=== PATIENT | male | born 1995 | race Two or more races ===

== ENCOUNTER 2018-02-05 02:31 | Emergency (ER) | payer BC ==
[~2018-02-05] VITALS: Ht 170.2 cm; Wt 81.6 kg
--- NOTE | 2018-02-05 02:48 | NUR ---
DR NYLA HICKS MD AT BEDSIDE FOR MSE.
--- NOTE | 2018-02-05 02:55 | NUR ---
LAB AT PT BEDSIDE FOR BLOOD DRAW.
--- NOTE | 2018-02-05 02:59 | NUR ---
RADIOLOGY AT BEDSIDE FOR XRAY.
[2018-02-05 03:02] LABS: BASOPHILS % (AUTO) 0.6 % (0.0-2.0); EOSINOPHILS # (AUTO) 0.5 K/uL (0.0-0.7); HEMATOCRIT 43.4 % (36.7-47.1); HEMOGLOBIN 15.2 g/dL (12.5-16.3); LYMPHOCYTES # (AUTO) 3.3 K/uL (20.0-40.0); LYMPHOCYTES % (AUTO) 43.2 % (20.5-51.5); MEAN CORPUSCULAR HEMOGLOBIN 28.6 uug (23.8-33.4); MEAN CORPUSCULAR HGB CONC 35 g/dL (32.5-36.3); MEAN CORPUSCULAR VOLUME 81.9 fL (73.0-96.2); MONOCYTES # (AUTO) 0.7 K/uL (2.0-10.0); MONOCYTES % (AUTO) 8.6 % (0.0-11.0); NEUTROPHILS # (AUTO) 3.2 K/uL (1.8-8.9); NEUTROPHILS % (AUTO) 41.6 % (38.5-71.5); PLATELET COUNT (AUTO) 200 K/uL (152-348); WHITE BLOOD COUNT (AUTO) 7.7 K/uL (3.6-10.2)
[2018-02-05] MEDS ORDERED: MAG HYDROX/AL HYDROX/SIMETH 30 ML LIQUID UDC ONE (03:09)
[2018-02-05 03:11] LABS: CREATININE 1.1 mg/dL (0.6-1.3)
[2018-02-05] MEDS ORDERED: MAG HYDROX/AL HYDROX/SIMETH 30 ML LIQUID UDC PO ONE (03:15)
--- NOTE | 2018-02-05 03:32 | NUR ---
Patient discharged to home in stable conditon. Written and verbal after care instructions given. Patient verbalizes understanding of instructions. Pt denies CP, SOB, abd pain, [place], dizziness. No distress noted. Pt states he "feels much better." Pt ambulated from ER w/ steady gait. Pt took all personal belongings.
[2018-02-05 03:34] VITALS: BP 125/78
== END 2018-02-05 03:37 | disposition home or self-care (01) ==
LOC: ER 02:34
DX: K21.9 Gastro-esophageal reflux disease without esophagitis (principal); Z79.899 Other long term (current) drug therapy
CPT/HCPCS: 36415; 70030-TC; 71045; 85025; 93005; A4663